=== PATIENT | female | born 1940 | race Caucasian/White ===

== ENCOUNTER → 2017-02-10 | Outpatient (REF) | payer MEDICARE, BC ==
[2017-02-10 18:10] LABS: TOTAL PROTEIN 6.4 GM/DL (6.4-8.2)
[2017-02-14 12:39] LABS: ALBUMIN % 62.5 % (55.8-66.1); GAMMA GLOBULIN % 11.4 % (11.1-18.8)
== END ==
LOC: M LAB REF 17:32
PROVIDERS: ATTEND Internal Medicine
DX: D64.9 Anemia, unspecified (principal); N18.3 Chronic kidney disease, stage 3 (moderate)

== ENCOUNTER → 2018-02-08 | Outpatient (CLI) | payer MEDICARE | LOC: M PAIN 14:00 | DX: M79.1 Myalgia (principal); M48.07 Spinal stenosis, lumbosacral region; G89.29 Other chronic pain; E11.9 Type 2 diabetes mellitus without complications; E78.00 Pure hypercholesterolemia, unspecified; I10 Essential (primary) hypertension; Z79.84 Long term (current) use of oral hypoglycemic drugs; Z79.82 Long term (current) use of aspirin; Z79.899 Other long term (current) drug therapy; Z88.2 Allergy status to sulfonamides; Z88.5 Allergy status to narcotic agent; Z88.6 Allergy status to analgesic agent; Z88.8 Allergy status to other drugs, medicaments and biological substances; Z96.643 Presence of artificial hip joint, bilateral | CPT/HCPCS: G0463 ==

== ENCOUNTER → 2018-02-22 | Outpatient (CLI) | payer MEDICARE ==
[~2018-02-22] MED LIST: BUPIVACAINE HCL 0.25% 10 ML VIAL As Ordered; BUPIVACAINE HCL 0.25% 30 ML VIAL As Ordered; TRIAMCINOLONE ACETONIDE SUSP 40 MG/ML VIAL (J3301) As Ordered
== END ==
LOC: M PAIN 08:45
DX: G89.29 Other chronic pain (principal); M79.1 Myalgia; E11.9 Type 2 diabetes mellitus without complications; E78.00 Pure hypercholesterolemia, unspecified; I10 Essential (primary) hypertension; Z96.643 Presence of artificial hip joint, bilateral; Z79.84 Long term (current) use of oral hypoglycemic drugs; Z79.82 Long term (current) use of aspirin; Z79.899 Other long term (current) drug therapy; Z88.2 Allergy status to sulfonamides; Z88.6 Allergy status to analgesic agent; Z88.8 Allergy status to other drugs, medicaments and biological substances
CPT/HCPCS: J3301

== ENCOUNTER → 2018-03-12 | Outpatient (CLI) | payer MEDICARE | LOC: M PAIN 09:45 | DX: M47.817 Spondylosis without myelopathy or radiculopathy, lumbosacral region (principal); E11.9 Type 2 diabetes mellitus without complications; I10 Essential (primary) hypertension; E78.00 Pure hypercholesterolemia, unspecified; Z79.82 Long term (current) use of aspirin; Z79.84 Long term (current) use of oral hypoglycemic drugs; Z79.899 Other long term (current) drug therapy; Z88.8 Allergy status to other drugs, medicaments and biological substances; Z90.710 Acquired absence of both cervix and uterus; Z96.643 Presence of artificial hip joint, bilateral | CPT/HCPCS: G0463 ==

== ENCOUNTER → 2018-04-10 | Outpatient (CLI) | payer MEDICARE ==
[~2018-04-10] MED LIST changes: -BUPIVACAINE HCL 0.25% 10 ML VIAL As Ordered; +ISOVUE-M 300 61% 15ML VIAL (Q9967) As Ordered; +LIDOCAINE 1% SDV INJ 30 ML VIAL As Ordered; +diazePAM 5 MG TAB As Ordered; +diphenhydrAMINE INJ 50MG/ML VIAL (J1200) As Ordered; +oxyCODONE 5MG TAB As Ordered
== END ==
LOC: M PAIN 10:45
DX: G89.29 Other chronic pain (principal); M46.1 Sacroiliitis, not elsewhere classified; M54.5 Low back pain; E11.9 Type 2 diabetes mellitus without complications; E78.00 Pure hypercholesterolemia, unspecified; I10 Essential (primary) hypertension; Z79.84 Long term (current) use of oral hypoglycemic drugs; Z79.82 Long term (current) use of aspirin; Z79.899 Other long term (current) drug therapy; Z88.2 Allergy status to sulfonamides; Z88.8 Allergy status to other drugs, medicaments and biological substances; Z96.643 Presence of artificial hip joint, bilateral; Z90.710 Acquired absence of both cervix and uterus; Z86.69 Personal history of other diseases of the nervous system and sense organs
CPT/HCPCS: J3301

== ENCOUNTER → 2018-04-26 | Outpatient (CLI) | payer MEDICARE | LOC: M PAIN 09:45 | DX: M46.1 Sacroiliitis, not elsewhere classified (principal); M79.1 Myalgia; M48.07 Spinal stenosis, lumbosacral region; E11.9 Type 2 diabetes mellitus without complications; E78.00 Pure hypercholesterolemia, unspecified; I10 Essential (primary) hypertension; H26.9 Unspecified cataract; Z96.643 Presence of artificial hip joint, bilateral; Z88.2 Allergy status to sulfonamides; Z88.6 Allergy status to analgesic agent; Z88.8 Allergy status to other drugs, medicaments and biological substances; Z79.84 Long term (current) use of oral hypoglycemic drugs; Z79.82 Long term (current) use of aspirin; Z79.899 Other long term (current) drug therapy | CPT/HCPCS: G0463 ==

== ENCOUNTER → 2018-06-26 | Outpatient (CLI) | payer MEDICARE | LOC: M PAIN 14:15 | DX: M46.1 Sacroiliitis, not elsewhere classified (principal); M48.07 Spinal stenosis, lumbosacral region; M79.18 Myalgia, other site; E11.9 Type 2 diabetes mellitus without complications; E78.00 Pure hypercholesterolemia, unspecified; I10 Essential (primary) hypertension; Z79.84 Long term (current) use of oral hypoglycemic drugs; Z79.82 Long term (current) use of aspirin; Z79.899 Other long term (current) drug therapy; Z88.2 Allergy status to sulfonamides; Z88.5 Allergy status to narcotic agent; Z88.6 Allergy status to analgesic agent; Z88.8 Allergy status to other drugs, medicaments and biological substances; Z96.643 Presence of artificial hip joint, bilateral; Z96.641 Presence of right artificial hip joint; Z96.642 Presence of left artificial hip joint | CPT/HCPCS: G0463 ==

== ENCOUNTER 2019-04-24 10:50 | Emergency (ER) | payer MEDICARE ==
[~2019-04-24] VITALS: Ht 162.6 cm; Wt 63.6 kg
[2019-04-24] MEDS ORDERED: SYNT75TA (11:19)
[2019-04-24] MEDS ORDERED: TOPR25TA (11:19)
[2019-04-24] MEDS ORDERED: REST0.05 (11:19)
[2019-04-24] MEDS ORDERED: CALC1TAB63 PO (11:19)
[2019-04-24] MEDS ORDERED: MEMA14CA (11:19)
[2019-04-24] MEDS ORDERED: DONE5TAB82 (11:19)
[2019-04-24] MEDS ORDERED: ATOR1TAB21 (11:19)
[2019-04-24] MEDS ORDERED: RAMI1CAP26 (11:19)
[2019-04-24] MEDS ORDERED: CENT1TAB PO (11:19)
[2019-04-24] MEDS ORDERED: ONGL1TAB9 (11:19)
[2019-04-24] MEDS ORDERED: BIOT1CAP2 PO (11:19)
[2019-04-24] MEDS ORDERED: METF500T13 (11:19)
[2019-04-24 11:32] VITALS: BP 201/82
[2019-04-24] MEDS ORDERED: KETOROLAC 30 MG/ML VIAL (J1885) IM ONE (12:30)
[2019-04-24] MEDS ORDERED: diazePAM 5 MG TAB PO ONE (12:45)
[2019-04-24] MEDS ORDERED: TYLE650T35 PO (12:45)
[2019-04-24] MEDS ORDERED: SOMA250T PO (12:45)
[2019-04-24] MEDS ORDERED: ACETAMINOPHEN TAB 650MG DOSE (2X325MG) PO ONE (12:45)
== END 2019-04-24 12:59 | disposition home or self-care (01) ==
LOC: M ED 10:50 → EDBD 10:50 → M ED 12:59
DX: M54.16 Radiculopathy, lumbar region (principal); M19.90 Unspecified osteoarthritis, unspecified site; E11.9 Type 2 diabetes mellitus without complications; I10 Essential (primary) hypertension; Z87.891 Personal history of nicotine dependence; Z79.84 Long term (current) use of oral hypoglycemic drugs; Z79.899 Other long term (current) drug therapy; Z88.6 Allergy status to analgesic agent; Z88.2 Allergy status to sulfonamides

== ENCOUNTER → 2019-05-17 | Outpatient (REF) | payer MEDICARE ==
[~2019-05-17] MED LIST changes: +ATOR1TAB21; +BIOT1CAP2 PO; -BUPIVACAINE HCL 0.25% 30 ML VIAL As Ordered; +CALC1TAB63 PO; +CENT1TAB PO; +DONE5TAB82; -ISOVUE-M 300 61% 15ML VIAL (Q9967) As Ordered; -LIDOCAINE 1% SDV INJ 30 ML VIAL As Ordered; +MEMA14CA; +METF500T13; +ONGL1TAB9; +RAMI1CAP26; +REST0.05; +SOMA250T PO; +SYNT75TA; +TOPR25TA; -TRIAMCINOLONE ACETONIDE SUSP 40 MG/ML VIAL (J3301) As Ordered; +TYLE650T35 PO; -diazePAM 5 MG TAB As Ordered; -diphenhydrAMINE INJ 50MG/ML VIAL (J1200) As Ordered; -oxyCODONE 5MG TAB As Ordered
[2019-05-19 08:27] LABS: LDL DIRECT 34 mg/dL (0-99)
== END ==
LOC: M LAB REF 16:30
PROVIDERS: ATTEND Internal Medicine
DX: E78.5 Hyperlipidemia, unspecified (principal)

== ENCOUNTER → 2021-06-04 | Outpatient (CLI) | payer MEDICARE ==
[~2021-06-04] MED LIST changes: +ACET650T61 PO; -TYLE650T35 PO
== END ==
LOC: M WHC 13:05
PROVIDERS: ATTEND Internal Medicine
DX: Z12.31 Encounter for screening mammogram for malignant neoplasm of breast (principal)

== ENCOUNTER 2022-03-02 16:09 | Inpatient (IN) | payer MEDICARE ==
[~2022-03-02] VITALS: Ht 165.1 cm; Wt 60.1 kg
[~2022-03-02 16:09] MED LIST changes: -ATOR1TAB21; +ATOR1TAB21 PO; -METF500T13; +METF500T13 PO; -RAMI1CAP26; +RAMI1CAP26 PO; -REST0.05; +REST0.05 OU; -SYNT75TA; +SYNT75TA PO; -TOPR25TA; +TOPR25TA PO
[2022-03-02] MEDS ORDERED: BRIM5DRO4 OU (16:25)
[2022-03-02] MEDS ORDERED: MORPHINE 2 MG/ML 1ML VIAL IV ONE ×2 (21:05→22:15)
[2022-03-02] MEDS ORDERED: propofoL 200 MG/20 ML VIAL As Ordered ONE (22:40)
[2022-03-02] MEDS ORDERED: NS 1,000 ML IV SCH (22:40)
[2022-03-02] MEDS ORDERED: propofoL 200 MG/20 ML VIAL IV.PROC PRN (22:40)
[2022-03-02 23:12] LABS: HEMATOCRIT 34.9 % (36.0-47.0); HEMOGLOBIN 11.7 g/dl (12.0-15.5); MEAN CORPUSCULAR HEMOGLOBIN 32.4 pg (27.0-33.0); MEAN CORPUSCULAR HGB CONC 33.5 g/dl (32.0-36.5); MEAN CORPUSCULAR VOLUME 96.7 fl (80.0-96.0); PLATELET COUNT, AUTOMATED 186 10^3/uL (150-450); RED BLOOD COUNT 3.61 10^6/uL (4.00-5.40); WHITE BLOOD COUNT 6.5 10^3/uL (4.0-10.0)
[2022-03-02 23:33] LABS: CALCIUM LEVEL 8.3 MG/DL (8.8-10.2); CREATININE FOR GFR 1.15 MG/DL (0.55-1.30); GLOMERULAR FILTRATION RATE 48.2 (>32); POTASSIUM SERUM 3.7 MEQ/L (3.5-5.1)
[2022-03-03 00:16] LABS: RSV AMPLIFICATION NEGATIVE (NEGATIVE)
[2022-03-03] MEDS ORDERED: MOM 30ML SUSPENSION UDC PO PRN (00:50)
[2022-03-03] MEDS ORDERED: GLUCAGON INJ 1MG VIAL SC PRN (00:50)
[2022-03-03] MEDS ORDERED: GLUCOSE 4GM CHEW TABLET PO PRN (00:50)
[2022-03-03] MEDS ORDERED: MAALOX 30 ML SUSP *UDC PO PRN (00:50)
[2022-03-03] MEDS ORDERED: DEXTROSE 50% 50 ML SYRINGE IV PRN (00:50)
[2022-03-03] MEDS ORDERED: MORPHINE 2 MG/ML 1ML VIAL IV PRN ×2 (00:50)
[2022-03-03 02:09] LABS: INR 0.97; PROTHROMBIN TIME 13.3 SECONDS (12.7-14.5)
[2022-03-03 03:32] VITALS: BP 185/77
[2022-03-03 03:36] VITALS: BP 152/68
[2022-03-03 07:33] LABS: HEMATOCRIT 34.7 % (36.0-47.0); HEMOGLOBIN 11.4 g/dl (12.0-15.5); MEAN CORPUSCULAR HEMOGLOBIN 31.8 pg (27.0-33.0); MEAN CORPUSCULAR HGB CONC 32.9 g/dl (32.0-36.5); MEAN CORPUSCULAR VOLUME 96.7 fl (80.0-96.0); PLATELET COUNT, AUTOMATED 166 10^3/uL (150-450); RED BLOOD COUNT 3.59 10^6/uL (4.00-5.40)
[2022-03-03 07:53] LABS: CALCIUM LEVEL 8.5 MG/DL (8.8-10.2); CREATININE FOR GFR 0.98 MG/DL (0.55-1.30); MAGNESIUM LEVEL 1.6 MG/DL (1.8-2.4); POTASSIUM SERUM 3.6 MEQ/L (3.5-5.1)
[2022-03-03] MEDS: INSULIN LISPRO (NovoLOG) PER UNIT SC SCH ×4 (08:16→20:41)
[2022-03-03] MEDS: DOCUSATE SODIUM 100MG CAPSULE PO SCH ×2 (08:17→20:43)
[2022-03-03 12:00] VITALS: BP 115/55
[2022-03-03] MEDS ORDERED: MEMA28CA12 PO (12:17)
[2022-03-03] MEDS ORDERED: ASPI-161 PO (12:17)
[2022-03-03] MEDS ORDERED: CYAN100050 PO (12:17)
[2022-03-03] MEDS ORDERED: HOME MED LIST COMPLETE! XX SCH (12:20)
[2022-03-03] MEDS: HEPARIN SOD (PORCINE) 5000UNITS/ML 1ML VIAL/SYRINGE SC SCH ×2 (13:12→20:43)
[2022-03-03] MEDS ORDERED: AMLO2.5T3 PO (15:07)
[2022-03-03] MEDS: ramipriL 5 MG CAP PO SCH (16:27)
[2022-03-03] MEDS: MULTIVITAMINS/MINERALS THERAP 1 TAB PO SCH (18:12)
[2022-03-03] MEDS: MEMANTINE 5MG TABLET (NAMENDA) PO SCH (18:13)
[2022-03-03] MEDS: ASPIRIN 81MG ENTERIC TABLET PO SCH (18:13)
[2022-03-03] MEDS: METOPROLOL SUCC *XL* 25MG TAB (TopROL *XL*) PO SCH (18:13)
[2022-03-03 20:33] VITALS: BP 148/74
[2022-03-03] MEDS: BRIMONIDINE 0.15% OPHTH SOLN 5 ML OU SCH (20:43)
[2022-03-03] MEDS: ACETAMINOPHEN TAB 650MG DOSE (2X325MG) PO PRN (20:43)
[2022-03-03] MEDS: TIMOLOL MALEATE 0.5% OPHTH SOLN 5 ML OU SCH (20:43)
[2022-03-03] MEDS: ATORVASTATIN 20 MG TAB PO SCH (20:43)
[2022-03-03 22:23] LABS: APPEARANCE, URINE CLOUDY (CLEAR); BACTERIA, URINE AUTO 1+ (NEGATIVE); BILIRUBIN, URINE AUTO NEGATIVE (NEGATIVE); BLOOD, URINE BLOOD 2+ (NEGATIVE); COLOR, URINE YELLOW (YELLOW); GLUCOSE, URINE (UA) AUTO NEGATIVE (NEGATIVE); KETONE, URINE AUTO NEGATIVE (NEGATIVE); LEUKOCYTE ESTERASE, URINE AUTO 2+ (NEGATIVE); MUCUS, URINE SMALL (NEGATIVE); NITRITE, URINE AUTO NEGATIVE (NEGATIVE); PROTEIN, URINE AUTO 1+ mg/dL (NEGATIVE); RBC, URINE AUTO 18 /HPF (0-3); SQUAMOUS EPITHELIAL CELL UR AU 0 /HPF (0-6); UROBILINOGEN, URINE AUTO 0.2 mg/dL (0.0-2.0); WBC, URINE AUTO 170 /HPF (0-3)
[2022-03-04 05:59] VITALS: BP 140/68
[2022-03-04] MEDS: HEPARIN SOD (PORCINE) 5000UNITS/ML 1ML VIAL/SYRINGE SC SCH ×3 (06:04→20:17)
[2022-03-04] MEDS: LEVOTHYROXINE 75MCG TABLET (0.075MG) PO SCH (06:04)
[2022-03-04] MEDS ORDERED: cefTRIAXone SOD 1 GM in D5W MINI-BAG PLUS 50 ML IV SCH (09:00)
[2022-03-04] MEDS: ramipriL 5 MG CAP PO SCH (09:00)
[2022-03-04] MEDS: ASPIRIN 81MG ENTERIC TABLET PO SCH (09:06)
[2022-03-04] MEDS: MULTIVITAMINS/MINERALS THERAP 1 TAB PO SCH (09:08)
[2022-03-04] MEDS: MEMANTINE 5MG TABLET (NAMENDA) PO SCH (09:08)
[2022-03-04] MEDS: DOCUSATE SODIUM 100MG CAPSULE PO SCH ×2 (09:08→20:16)
[2022-03-04] MEDS: INSULIN LISPRO (NovoLOG) PER UNIT SC SCH ×4 (09:08→21:00)
[2022-03-04] MEDS: TIMOLOL MALEATE 0.5% OPHTH SOLN 5 ML OU SCH ×2 (09:10→20:17)
[2022-03-04] MEDS: METOPROLOL SUCC *XL* 25MG TAB (TopROL *XL*) PO SCH (09:10)
[2022-03-04] MEDS: BRIMONIDINE 0.15% OPHTH SOLN 5 ML OU SCH ×2 (09:10→20:17)
[2022-03-04] MEDS: ACETAMINOPHEN TAB 650MG DOSE (2X325MG) PO PRN ×2 (10:23→17:50)
[2022-03-04 12:00] VITALS: BP 108/53
[2022-03-04 19:50] VITALS: BP 148/65
[2022-03-04] MEDS: QUEtiapine FUMARATE 25 MG TAB PO SCH (20:16)
[2022-03-04] MEDS: ATORVASTATIN 20 MG TAB PO SCH (20:16)
[2022-03-05 03:49] VITALS: BP 128/86
[2022-03-05] MEDS: LEVOTHYROXINE 75MCG TABLET (0.075MG) PO SCH (05:45)
[2022-03-05] MEDS: CEPHALEXIN 250MG CAPSULE PO SCH ×3 (05:45→17:25)
[2022-03-05] MEDS: HEPARIN SOD (PORCINE) 5000UNITS/ML 1ML VIAL/SYRINGE SC SCH ×3 (05:45→21:27)
[2022-03-05] MEDS: INSULIN LISPRO (NovoLOG) PER UNIT SC SCH ×4 (08:47→20:21)
[2022-03-05] MEDS: MEMANTINE 5MG TABLET (NAMENDA) PO SCH (08:47)
[2022-03-05] MEDS: MULTIVITAMINS/MINERALS THERAP 1 TAB PO SCH (08:47)
[2022-03-05] MEDS: BRIMONIDINE 0.15% OPHTH SOLN 5 ML OU SCH ×2 (08:47→21:26)
[2022-03-05] MEDS: ASPIRIN 81MG ENTERIC TABLET PO SCH (08:47)
[2022-03-05] MEDS: DOCUSATE SODIUM 100MG CAPSULE PO SCH ×2 (08:47→21:26)
[2022-03-05] MEDS: TIMOLOL MALEATE 0.5% OPHTH SOLN 5 ML OU SCH ×2 (08:49→21:26)
[2022-03-05] MEDS: METOPROLOL SUCC *XL* 25MG TAB (TopROL *XL*) PO SCH (08:50)
[2022-03-05] MEDS: ramipriL 5 MG CAP PO SCH (08:50)
[2022-03-05 19:32] VITALS: BP 134/63
[2022-03-05] MEDS: ATORVASTATIN 20 MG TAB PO SCH (21:26)
[2022-03-05] MEDS: QUEtiapine FUMARATE 25 MG TAB PO SCH (21:27)
[2022-03-06] MEDS: CEPHALEXIN 250MG CAPSULE PO SCH ×2 (00:31→06:04)
[2022-03-06 03:39] VITALS: BP 157/72
[2022-03-06] MEDS: LEVOTHYROXINE 75MCG TABLET (0.075MG) PO SCH (06:04)
[2022-03-06] MEDS: HEPARIN SOD (PORCINE) 5000UNITS/ML 1ML VIAL/SYRINGE SC SCH ×3 (06:04→20:29)
[2022-03-06] MEDS: MEMANTINE 5MG TABLET (NAMENDA) PO SCH (08:51)
[2022-03-06] MEDS: INSULIN LISPRO (NovoLOG) PER UNIT SC SCH ×4 (08:55→19:57)
[2022-03-06] MEDS: ASPIRIN 81MG ENTERIC TABLET PO SCH (08:56)
[2022-03-06] MEDS: MULTIVITAMINS/MINERALS THERAP 1 TAB PO SCH (08:56)
[2022-03-06] MEDS: AUGMENTIN 875 MG TAB PO SCH ×2 (08:56→20:28)
[2022-03-06] MEDS: DOCUSATE SODIUM 100MG CAPSULE PO SCH ×2 (08:56→20:28)
[2022-03-06] MEDS: ramipriL 5 MG CAP PO SCH (08:57)
[2022-03-06] MEDS: BRIMONIDINE 0.15% OPHTH SOLN 5 ML OU SCH ×2 (08:57→20:28)
[2022-03-06] MEDS: METOPROLOL SUCC *XL* 25MG TAB (TopROL *XL*) PO SCH (08:57)
[2022-03-06] MEDS: TIMOLOL MALEATE 0.5% OPHTH SOLN 5 ML OU SCH ×2 (08:58→20:28)
[2022-03-06 12:00] VITALS: BP 116/58
[2022-03-06] MEDS: ACETAMINOPHEN TAB 650MG DOSE (2X325MG) PO PRN (18:02)
[2022-03-06] MEDS: QUEtiapine FUMARATE 25 MG TAB PO SCH (20:28)
[2022-03-06] MEDS: ATORVASTATIN 20 MG TAB PO SCH (20:28)
[2022-03-07 05:45] VITALS: BP 108/63
[2022-03-07] MEDS: LEVOTHYROXINE 75MCG TABLET (0.075MG) PO SCH (06:11)
[2022-03-07] MEDS: HEPARIN SOD (PORCINE) 5000UNITS/ML 1ML VIAL/SYRINGE SC SCH ×3 (06:11→21:04)
[2022-03-07] MEDS: INSULIN LISPRO (NovoLOG) PER UNIT SC SCH ×4 (08:39→21:00)
[2022-03-07] MEDS: AUGMENTIN 875 MG TAB PO SCH ×2 (08:39→21:04)
[2022-03-07] MEDS: ramipriL 5 MG CAP PO SCH (08:41)
[2022-03-07] MEDS: MEMANTINE 5MG TABLET (NAMENDA) PO SCH (08:41)
[2022-03-07] MEDS: DOCUSATE SODIUM 100MG CAPSULE PO SCH ×2 (08:42→21:04)
[2022-03-07] MEDS: MULTIVITAMINS/MINERALS THERAP 1 TAB PO SCH (08:42)
[2022-03-07] MEDS: ASPIRIN 81MG ENTERIC TABLET PO SCH (08:43)
[2022-03-07] MEDS: BRIMONIDINE 0.15% OPHTH SOLN 5 ML OU SCH ×2 (08:43→21:05)
[2022-03-07] MEDS: METOPROLOL SUCC *XL* 25MG TAB (TopROL *XL*) PO SCH (08:43)
[2022-03-07] MEDS: TIMOLOL MALEATE 0.5% OPHTH SOLN 5 ML OU SCH ×2 (08:43→21:05)
[2022-03-07] MEDS: ACETAMINOPHEN TAB 650MG DOSE (2X325MG) PO PRN ×2 (10:35→17:06)
[2022-03-07] MEDS: QUEtiapine FUMARATE 25 MG TAB PO SCH (21:04)
[2022-03-07] MEDS: ATORVASTATIN 20 MG TAB PO SCH (21:05)
[2022-03-08 06:21] VITALS: BP 143/65
[2022-03-08] MEDS: HEPARIN SOD (PORCINE) 5000UNITS/ML 1ML VIAL/SYRINGE SC SCH ×3 (06:35→21:55)
[2022-03-08] MEDS: LEVOTHYROXINE 75MCG TABLET (0.075MG) PO SCH (06:35)
[2022-03-08] MEDS: AUGMENTIN 875 MG TAB PO SCH ×2 (08:24→21:54)
[2022-03-08] MEDS: MULTIVITAMINS/MINERALS THERAP 1 TAB PO SCH (08:24)
[2022-03-08] MEDS: MEMANTINE 5MG TABLET (NAMENDA) PO SCH (08:25)
[2022-03-08] MEDS: ramipriL 5 MG CAP PO SCH (08:25)
[2022-03-08] MEDS: DOCUSATE SODIUM 100MG CAPSULE PO SCH ×2 (08:25→21:54)
[2022-03-08] MEDS: METOPROLOL SUCC *XL* 25MG TAB (TopROL *XL*) PO SCH (08:25)
[2022-03-08] MEDS: ASPIRIN 81MG ENTERIC TABLET PO SCH (08:25)
[2022-03-08] MEDS: INSULIN LISPRO (NovoLOG) PER UNIT SC SCH ×4 (08:26→21:00)
[2022-03-08] MEDS: TIMOLOL MALEATE 0.5% OPHTH SOLN 5 ML OU SCH ×2 (08:27→21:56)
[2022-03-08] MEDS: BRIMONIDINE 0.15% OPHTH SOLN 5 ML OU SCH ×2 (08:27→21:55)
[2022-03-08 15:26] LABS: HEMATOCRIT 33.5 % (36.0-47.0); HEMOGLOBIN 11.2 g/dl (12.0-15.5); MEAN CORPUSCULAR HEMOGLOBIN 32.8 pg (27.0-33.0); MEAN CORPUSCULAR HGB CONC 33.4 g/dl (32.0-36.5); MEAN CORPUSCULAR VOLUME 98.2 fl (80.0-96.0); PLATELET COUNT, AUTOMATED 196 10^3/uL (150-450); RED BLOOD COUNT 3.41 10^6/uL (4.00-5.40); WHITE BLOOD COUNT 5.5 10^3/uL (4.0-10.0)
[2022-03-08 15:49] LABS: CREATININE FOR GFR 1.31 MG/DL (0.55-1.30); GLOMERULAR FILTRATION RATE 41.5 (>32); POTASSIUM SERUM 4.3 MEQ/L (3.5-5.1)
[2022-03-08 19:37] VITALS: BP_SYST 168; BP_SYST 174; BP_DIAS 71; BP_DIAS 72
[2022-03-08] MEDS: ATORVASTATIN 20 MG TAB PO SCH (21:54)
[2022-03-08] MEDS: QUEtiapine FUMARATE 25 MG TAB PO SCH (21:54)
[2022-03-08 22:02] VITALS: BP 154/62
[2022-03-09 04:00] VITALS: BP 126/58
[2022-03-09] MEDS: HEPARIN SOD (PORCINE) 5000UNITS/ML 1ML VIAL/SYRINGE SC SCH ×2 (05:50→14:23)
[2022-03-09] MEDS: LEVOTHYROXINE 75MCG TABLET (0.075MG) PO SCH (05:50)
[2022-03-09] MEDS: ramipriL 5 MG CAP PO SCH (08:16)
[2022-03-09] MEDS: INSULIN LISPRO (NovoLOG) PER UNIT SC SCH ×2 (08:35→12:15)
[2022-03-09 08:37] VITALS: BP 126/58
[2022-03-09] MEDS: ASPIRIN 81MG ENTERIC TABLET PO SCH (08:37)
[2022-03-09] MEDS: AUGMENTIN 875 MG TAB PO SCH (08:37)
[2022-03-09] MEDS: MULTIVITAMINS/MINERALS THERAP 1 TAB PO SCH (08:37)
[2022-03-09] MEDS: METOPROLOL SUCC *XL* 25MG TAB (TopROL *XL*) PO SCH (08:37)
[2022-03-09] MEDS: DOCUSATE SODIUM 100MG CAPSULE PO SCH (08:37)
[2022-03-09] MEDS: MEMANTINE 5MG TABLET (NAMENDA) PO SCH (08:38)
[2022-03-09] MEDS: TIMOLOL MALEATE 0.5% OPHTH SOLN 5 ML OU SCH (08:39)
[2022-03-09] MEDS: BRIMONIDINE 0.15% OPHTH SOLN 5 ML OU SCH (08:39)
[2022-03-09] MEDS ORDERED: AMOX875T2 PO (13:03)
== END 2022-03-09 15:49 | DRG 559 ==
LOC: M ED 16:09 → EEVIPCON 03-03 00:48 → M ED INP 03-03 00:48 → ENRESERV 03-03 02:15 → M 4MAIN 03-03 03:35
PROVIDERS: ADMIT Internal Medicine; ATTEND Internal Medicine
PROC: 0QS7XZZ Reposition Left Upper Femur, External Approach (ICD-10-PCS; principal; 2022-03-03)
DX: T84.021A Dislocation of internal left hip prosthesis, initial encounter (principal); U07.1 COVID-19; N39.0 Urinary tract infection, site not specified; F02.80 Dementia in other diseases classified elsewhere, unspecified severity, without behavioral disturbance, psychotic disturbance, mood disturbance, and anxiety; E78.5 Hyperlipidemia, unspecified; I10 Essential (primary) hypertension; E11.9 Type 2 diabetes mellitus without complications; Z96.643 Presence of artificial hip joint, bilateral; G30.9 Alzheimer's disease, unspecified; B96.20 Unspecified Escherichia coli [E. coli] as the cause of diseases classified elsewhere; Z66 Do not resuscitate; Z79.82 Long term (current) use of aspirin; Z79.899 Other long term (current) drug therapy; Z79.84 Long term (current) use of oral hypoglycemic drugs; Z88.2 Allergy status to sulfonamides; Z88.6 Allergy status to analgesic agent; Y83.1 Surgical operation with implant of artificial internal device as the cause of abnormal reaction of the patient, or of later complication, without mention of misadventure at the time of the procedure

== ENCOUNTER → 2022-04-08 | Outpatient (CLI) | payer MEDICARE ==
[~2022-04-08] MED LIST changes: +AMLO2.5T3 PO; +AMOX875T2 PO; +ASPI-161 PO; +BRIM5DRO4 OU; +CYAN100050 PO; +LIDOCAINE 1% MDV 20ML VIAL As Ordered ONE; +MEMA28CA12 PO
[2022-04-08 13:38] VITALS: BP 167/72
== END ==
LOC: M IRPRO 13:29
PROVIDERS: ATTEND Internal Medicine
DX: E86.0 Dehydration (principal); R11.2 Nausea with vomiting, unspecified
CPT/HCPCS: 36571; 76937; C1751; J1642; J1644

== ENCOUNTER → 2022-04-11 | Outpatient (REF) ==
[~2022-04-11] MED LIST changes: -LIDOCAINE 1% MDV 20ML VIAL As Ordered ONE
[2022-04-11 15:20] LABS: BASO % 0.7 % (0.0-1.0); EOS # 0.2 10^3/uL (0.0-0.5); EOS % 4.3 % (0.0-3.0); HEMATOCRIT 28.8 % (36.0-47.0); LYMPH # 0.7 10^3/uL (1.5-5.0); LYMPH % 16.3 % (24.0-44.0); MEAN CORPUSCULAR HEMOGLOBIN 32.3 pg (27.0-33.0); MEAN CORPUSCULAR HGB CONC 31.3 g/dl (32.0-36.5); MEAN CORPUSCULAR VOLUME 103.2 fl (80.0-96.0); MONO # 0.5 10^3/uL (0.0-0.8); MONO % 10.9 % (2.0-8.0); NEUTROPHILS % 67.3 % (36.0-66.0); PLATELET COUNT, AUTOMATED 162 10^3/uL (150-450); RED BLOOD COUNT 2.79 10^6/uL (4.00-5.40); WHITE BLOOD COUNT 4.4 10^3/uL (4.0-10.0)
[2022-04-11 15:50] LABS: ALBUMIN 2.5 GM/DL (3.2-5.2); ALT/SGPT < 6 U/L (12-78); BILIRUBIN,TOTAL 0.3 MG/DL (0.2-1.0); BLOOD UREA NITROGEN 11 MG/DL (7-18); C REACTIVE PROTEIN QUANTITATIV 0.51 MG/DL (0.00-0.30); CALCIUM LEVEL 8.2 MG/DL (8.8-10.2); CARBON DIOXIDE LEVEL 26 MEQ/L (21-32); CHLORIDE LEVEL 110 MEQ/L (98-107); CREATININE FOR GFR 1.22 MG/DL (0.55-1.30); GLUCOSE, FASTING 261 MG/DL (70-100); POTASSIUM SERUM 3.9 MEQ/L (3.5-5.1); SODIUM LEVEL 143 MEQ/L (136-145); TOTAL PROTEIN 5.6 GM/DL (6.4-8.2)
[2022-04-11 16:49] LABS: ERYTHROCYTE SEDIMENTATION RATE 36 mm/hr (0-30)
== END ==
PROVIDERS: ATTEND Physician Assistant
DX: A41.9 Sepsis, unspecified organism (principal)

== ENCOUNTER → 2022-04-13 | Outpatient (REF) | PROVIDERS: ATTEND Physician Assistant | DX: A41.9 Sepsis, unspecified organism (principal); Z53.9 Procedure and treatment not carried out, unspecified reason ==

== ENCOUNTER → 2022-04-18 | Outpatient (REF) ==
[2022-04-18 11:23] LABS: BASO # 0.1 10^3/uL (0.0-0.2); BASO % 1.2 % (0.0-1.0); EOS # 0.6 10^3/uL (0.0-0.5); EOS % 10.7 % (0.0-3.0); HEMATOCRIT 29.4 % (36.0-47.0); HEMOGLOBIN 9.5 g/dl (12.0-15.5); LYMPH # 1.2 10^3/uL (1.5-5.0); LYMPH % 22.3 % (24.0-44.0); MEAN CORPUSCULAR HEMOGLOBIN 32.4 pg (27.0-33.0); MEAN CORPUSCULAR HGB CONC 32.3 g/dl (32.0-36.5); MEAN CORPUSCULAR VOLUME 100.3 fl (80.0-96.0); MONO # 0.5 10^3/uL (0.0-0.8); MONO % 9.3 % (2.0-8.0); NEUTROPHILS # 2.9 10^3/uL (1.5-8.5); NEUTROPHILS % 56.1 % (36.0-66.0); PLATELET COUNT, AUTOMATED 188 10^3/uL (150-450); RED BLOOD COUNT 2.93 10^6/uL (4.00-5.40); WHITE BLOOD COUNT 5.2 10^3/uL (4.0-10.0)
[2022-04-18 12:07] LABS: ERYTHROCYTE SEDIMENTATION RATE 35 mm/hr (0-30)
[2022-04-18 12:50] LABS: ALBUMIN 2.6 GM/DL (3.2-5.2); BILIRUBIN,TOTAL 0.2 MG/DL (0.2-1.0); C REACTIVE PROTEIN QUANTITATIV 0.3 MG/DL (0.00-0.30); CALCIUM LEVEL 8.9 MG/DL (8.8-10.2); CREATININE FOR GFR 1.17 MG/DL (0.55-1.30); GLOMERULAR FILTRATION RATE 47.3 (>32); POTASSIUM SERUM 4.2 MEQ/L (3.5-5.1); TOTAL PROTEIN 5.7 GM/DL (6.4-8.2)
== END ==
PROVIDERS: ATTEND Physician Assistant
DX: A41.9 Sepsis, unspecified organism (principal)

== ENCOUNTER → 2022-04-20 | Outpatient (REF) | PROVIDERS: ATTEND Physician Assistant | DX: A41.9 Sepsis, unspecified organism (principal); Z53.9 Procedure and treatment not carried out, unspecified reason ==

== ENCOUNTER → 2022-04-25 | Outpatient (REF) ==
[2022-04-25 14:21] LABS: BASO # 0.1 10^3/uL (0.0-0.2); BASO % 0.8 % (0.0-1.0); EOS # 0.5 10^3/uL (0.0-0.5); EOS % 7.4 % (0.0-3.0); HEMATOCRIT 29.4 % (36.0-47.0); HEMOGLOBIN 9.3 g/dl (12.0-15.5); LYMPH # 1.1 10^3/uL (1.5-5.0); LYMPH % 17.8 % (24.0-44.0); MEAN CORPUSCULAR HEMOGLOBIN 32.9 pg (27.0-33.0); MEAN CORPUSCULAR HGB CONC 31.6 g/dl (32.0-36.5); MEAN CORPUSCULAR VOLUME 103.9 fl (80.0-96.0); MONO # 0.5 10^3/uL (0.0-0.8); MONO % 8.2 % (2.0-8.0); NEUTROPHILS # 4.1 10^3/uL (1.5-8.5); NEUTROPHILS % 65.5 % (36.0-66.0); PLATELET COUNT, AUTOMATED 208 10^3/uL (150-450); RED BLOOD COUNT 2.83 10^6/uL (4.00-5.40); WHITE BLOOD COUNT 6.2 10^3/uL (4.0-10.0)
[2022-04-25 14:35] LABS: ALBUMIN 2.6 GM/DL (3.2-5.2); BILIRUBIN,TOTAL 0.2 MG/DL (0.2-1.0); C REACTIVE PROTEIN QUANTITATIV 0.3 MG/DL (0.00-0.30); CALCIUM LEVEL 7.8 MG/DL (8.8-10.2); CREATININE FOR GFR 0.99 MG/DL (0.55-1.30); GLOMERULAR FILTRATION RATE 57.3 (>32); POTASSIUM SERUM 3.9 MEQ/L (3.5-5.1); TOTAL PROTEIN 5.7 GM/DL (6.4-8.2)
[2022-04-25 14:55] LABS: ERYTHROCYTE SEDIMENTATION RATE 37 mm/hr (0-30)
== END ==
PROVIDERS: ATTEND Physician Assistant
DX: A41.9 Sepsis, unspecified organism (principal)

== ENCOUNTER → 2022-05-02 | Outpatient (REF) | PROVIDERS: ATTEND Physician Assistant | DX: A41.9 Sepsis, unspecified organism (principal); Z53.9 Procedure and treatment not carried out, unspecified reason ==

== ENCOUNTER → 2022-05-09 | Outpatient (REF) | PROVIDERS: ATTEND Physician Assistant | DX: A41.9 Sepsis, unspecified organism (principal); Z53.9 Procedure and treatment not carried out, unspecified reason ==

== ENCOUNTER 2022-05-11 13:47 | Emergency (ER) | payer MEDICARE ==
[~2022-05-11] VITALS: Ht 162.6 cm; Wt 53.5 kg
[2022-05-11 16:32] VITALS: BP 167/72
== END 2022-05-11 16:30 | disposition home or self-care (01) ==
LOC: M ED 13:47
DX: S09.90XA Unspecified injury of head, initial encounter (principal); S50.11XA Contusion of right forearm, initial encounter; S40.021A Contusion of right upper arm, initial encounter; S50.311A Abrasion of right elbow, initial encounter; W19.XXXA Unspecified fall, initial encounter; Y92.018 Other place in single-family (private) house as the place of occurrence of the external cause; E11.9 Type 2 diabetes mellitus without complications; I10 Essential (primary) hypertension; E78.9 Disorder of lipoprotein metabolism, unspecified; F03.90 Unspecified dementia, unspecified severity, without behavioral disturbance, psychotic disturbance, mood disturbance, and anxiety; Z88.1 Allergy status to other antibiotic agents; Z88.2 Allergy status to sulfonamides; Z88.8 Allergy status to other drugs, medicaments and biological substances; Z79.899 Other long term (current) drug therapy; Z79.82 Long term (current) use of aspirin; Z79.890 Hormone replacement therapy; Z79.84 Long term (current) use of oral hypoglycemic drugs

== ENCOUNTER → 2022-05-16 | Outpatient (REF) | PROVIDERS: ATTEND Physician Assistant | DX: A41.9 Sepsis, unspecified organism (principal); Z53.9 Procedure and treatment not carried out, unspecified reason ==

== ENCOUNTER → 2022-05-23 | Outpatient (REF) | PROVIDERS: ATTEND Physician Assistant | DX: A41.9 Sepsis, unspecified organism (principal); Z53.8 Procedure and treatment not carried out for other reasons ==

== ENCOUNTER → 2022-07-05 | Outpatient (REF) | payer MEDICARE | LOC: M LAB REF 16:23 | PROVIDERS: ATTEND Internal Medicine | DX: Z79.899 Other long term (current) drug therapy (principal); B95.8 Unspecified staphylococcus as the cause of diseases classified elsewhere ==

== ENCOUNTER → 2022-08-05 | Outpatient (REF) | payer MEDICARE | LOC: M LAB REF 13:11 | PROVIDERS: ATTEND Internal Medicine | DX: Z79.899 Other long term (current) drug therapy (principal); B95.8 Unspecified staphylococcus as the cause of diseases classified elsewhere ==

== ENCOUNTER → 2022-09-01 | Outpatient (REF) | payer MEDICARE | LOC: M LAB REF 12:37 | PROVIDERS: ATTEND Physician Assistant Medical | DX: B95.8 Unspecified staphylococcus as the cause of diseases classified elsewhere (principal); Z79.2 Long term (current) use of antibiotics ==

== ENCOUNTER 2022-12-14 22:04 | Observation (INO) | payer MEDICARE ==
[2022-12-15] MEDS ORDERED: hydrALAZINE 20MG/ML 1ML VIAL IV STA (00:43)
[2022-12-15 00:49] LABS: BASO % 0.5 % (0.0-1.0); EOS # 0.2 10^3/uL (0.0-0.5); EOS % 2.6 % (0.0-3.0); HEMATOCRIT 34.1 % (36.0-47.0); HEMOGLOBIN 10.8 g/dl (12.0-15.5); LYMPH # 1.1 10^3/uL (1.5-5.0); LYMPH % 14.6 % (24.0-44.0); MEAN CORPUSCULAR HEMOGLOBIN 31.7 pg (27.0-33.0); MEAN CORPUSCULAR HGB CONC 31.7 g/dl (32.0-36.5); MONO # 0.6 10^3/uL (0.0-0.8); MONO % 7.5 % (2.0-8.0); NEUTROPHILS # 5.8 10^3/uL (1.5-8.5); NEUTROPHILS % 73.8 % (36.0-66.0); PLATELET COUNT, AUTOMATED 179 10^3/uL (150-450); RED BLOOD COUNT 3.41 10^6/uL (4.00-5.40); WHITE BLOOD COUNT 7.8 10^3/uL (4.0-10.0)
[2022-12-15 00:49] LABS: RSV AMPLIFICATION NEGATIVE (NEGATIVE)
[2022-12-15 01:50] LABS: INR 0.83; PROTHROMBIN TIME 11.6 SECONDS (12.5-14.5)
[2022-12-15 01:51] LABS: PARTIAL THROMBOPLASTIN TIME 26.9 SECONDS (24.8-34.2)
[2022-12-15 02:10] LABS: BLOOD UREA NITROGEN 28 MG/DL (9-23); CALCIUM LEVEL 8.5 MG/DL (8.3-10.6); CARBON DIOXIDE LEVEL 26 MMOL/L (20-31); CHLORIDE LEVEL 105 MMOL/L (98-107); CK-MB VALUE MASS 1.6 NG/ML (<3.6); CPK CREATINE PHOSPHOKINASE 161 U/L (34-145); CREATININE FOR GFR 0.87 MG/DL (0.55-1.30); GLOMERULAR FILTRATION RATE > 60.0 (>32); GLUCOSE, FASTING 191 MG/DL (74-106); MB/CK RELATIVE INDEX 0.99 (< OR =4); POTASSIUM SERUM 4.6 MMOL/L (3.5-5.1); SODIUM LEVEL 140 MMOL/L (136-145)
[2022-12-15] MEDS ORDERED: HOME MED LIST COMPLETE! XX SCH (05:20)
[2022-12-15] MEDS ORDERED: DEXTROSE 50% 50ML SYRINGE IV PRN (06:00)
[2022-12-15] MEDS ORDERED: ACETAMINOPHEN TAB 650MG DOSE (2X325MG) PO PRN (06:00)
[2022-12-15] MEDS: LEVOTHYROXINE 75MCG TABLET (0.075MG) PO SCH (06:00)
[2022-12-15] MEDS ORDERED: GLUCOSE 4GM CHEW TABLET PO PRN (06:00)
[2022-12-15] MEDS ORDERED: GLUCAGON INJ 1MG VIAL SC PRN (06:00)
[2022-12-15 07:06] VITALS: BP 156/77
[2022-12-15] MEDS: INSULIN LISPRO (NovoLOG) PER UNIT SC SCH ×3 (07:18→18:11)
[2022-12-15 08:03] LABS: CK-MB VALUE MASS 1.8 NG/ML (<3.6)
[2022-12-15 08:10] LABS: MB/CK RELATIVE INDEX 1.6 (< OR =4)
[2022-12-15] MEDS: ramipriL 5 MG CAP PO SCH (08:37)
[2022-12-15] MEDS: ASPIRIN 81MG ENTERIC TABLET PO SCH (08:37)
[2022-12-15] MEDS: HEPARIN SOD (PORCINE) 5000UNITS/ML 1ML VIAL/SYRINGE SC SCH ×2 (08:38→20:34)
[2022-12-15] MEDS: METOPROLOL SUCC *XL* 25MG TAB (TopROL *XL*) PO SCH (09:00)
[2022-12-15] MEDS ORDERED: oxyCODONE 5MG TAB PO PRN (09:15)
[2022-12-15] MEDS: ACETAMINOPHEN 500 MG TAB PO SCH ×2 (09:15→20:33)
[2022-12-15 13:00] VITALS: BP 142/53
[2022-12-15 14:00] VITALS: BP 124/47
[2022-12-15] MEDS: NAPROXEN 250 MG TAB PO SCH ×2 (14:03→20:34)
[2022-12-15 20:00] VITALS: BP 137/50
[2022-12-15] MEDS ORDERED: ATORVASTATIN 20 MG TAB PO SCH (21:00)
[2022-12-15] MEDS ORDERED: INSULIN LISPRO (NovoLOG) PER UNIT SC SCH (21:00)
[2022-12-16] MEDS: LEVOTHYROXINE 75MCG TABLET (0.075MG) PO SCH (05:35)
[2022-12-16 06:00] VITALS: BP 135/81
[2022-12-16 06:16] LABS: BASO % 0.6 % (0.0-1.0); EOS # 0.2 10^3/uL (0.0-0.5); EOS % 3.7 % (0.0-3.0); HEMATOCRIT 30.2 % (36.0-47.0); HEMOGLOBIN 9.7 g/dl (12.0-15.5); LYMPH # 1.9 10^3/uL (1.5-5.0); LYMPH % 34.6 % (24.0-44.0); MEAN CORPUSCULAR HEMOGLOBIN 31.6 pg (27.0-33.0); MEAN CORPUSCULAR HGB CONC 32.1 g/dl (32.0-36.5); MEAN CORPUSCULAR VOLUME 98.4 fl (80.0-96.0); MONO # 0.6 10^3/uL (0.0-0.8); NEUTROPHILS # 2.7 10^3/uL (1.5-8.5); NEUTROPHILS % 49.9 % (36.0-66.0); PLATELET COUNT, AUTOMATED 182 10^3/uL (150-450); RED BLOOD COUNT 3.07 10^6/uL (4.00-5.40); WHITE BLOOD COUNT 5.3 10^3/uL (4.0-10.0)
[2022-12-16 06:44] LABS: CALCIUM LEVEL 8.5 MG/DL (8.3-10.6); CREATININE FOR GFR 1.42 MG/DL (0.55-1.30); GLOMERULAR FILTRATION RATE 37.7 (>32); POTASSIUM SERUM 4.1 MMOL/L (3.5-5.1)
[2022-12-16] MEDS: INSULIN LISPRO (NovoLOG) PER UNIT SC SCH (07:30)
[2022-12-16] MEDS: ACETAMINOPHEN 500 MG TAB PO SCH (09:23)
[2022-12-16] MEDS: HEPARIN SOD (PORCINE) 5000UNITS/ML 1ML VIAL/SYRINGE SC SCH (09:24)
[2022-12-16] MEDS: ramipriL 5 MG CAP PO SCH (09:24)
[2022-12-16] MEDS: ASPIRIN 81MG ENTERIC TABLET PO SCH (09:24)
[2022-12-16] MEDS: METOPROLOL SUCC *XL* 25MG TAB (TopROL *XL*) PO SCH (09:24)
[2022-12-16] MEDS: NAPROXEN 250 MG TAB PO SCH (09:24)
[2022-12-16] MEDS ORDERED: ACET-683 PO (09:43)
[2022-12-16] MEDS ORDERED: OXYC-517 PO (09:43)
== END 2022-12-16 11:26 | disposition home health service (06) ==
LOC: M ED 22:04 → EDBD 22:04 → M ED INP 22:05 → ENRESERV 12-15 11:22 → M MSPAV 12-15 13:04
PROVIDERS: ADMIT Internal Medicine; ATTEND Internal Medicine Nephrology
DX: S42.031A Displaced fracture of lateral end of right clavicle, initial encounter for closed fracture (principal); S43.121A Dislocation of right acromioclavicular joint, 100%-200% displacement, initial encounter; M54.2 Cervicalgia; W01.10XA Fall on same level from slipping, tripping and stumbling with subsequent striking against unspecified object, initial encounter; Y92.098 Other place in other non-institutional residence as the place of occurrence of the external cause; N17.9 Acute kidney failure, unspecified; F03.90 Unspecified dementia, unspecified severity, without behavioral disturbance, psychotic disturbance, mood disturbance, and anxiety; I10 Essential (primary) hypertension; E78.5 Hyperlipidemia, unspecified; E11.9 Type 2 diabetes mellitus without complications; E03.9 Hypothyroidism, unspecified; E43 Unspecified severe protein-calorie malnutrition; D64.9 Anemia, unspecified; M46.1 Sacroiliitis, not elsewhere classified; M48.07 Spinal stenosis, lumbosacral region; Z96.652 Presence of left artificial knee joint; Z96.643 Presence of artificial hip joint, bilateral; Z79.899 Other long term (current) drug therapy; Z79.82 Long term (current) use of aspirin; Z79.890 Hormone replacement therapy; Z79.84 Long term (current) use of oral hypoglycemic drugs; Z88.2 Allergy status to sulfonamides; Z88.8 Allergy status to other drugs, medicaments and biological substances
CPT/HCPCS: 36415; 70450; 72125; 73030; 80048; 81001; 82550; 82553; 84145; 84484; 85025; 85610; 85730; 87631; 93005; 93041; 94760; 96372; 97110; 97116; 97161; 97165; 97530; 97535; 99285; G0378; J1815

== ENCOUNTER → 2022-12-26 | Outpatient (REF) | payer MEDICARE ==
[~2022-12-26] MED LIST changes: +ACET-683 PO; +OXYC-517 PO
[2022-12-26 20:07] LABS: PERCENT SATURATION 28.3 % (13.2-45.0)
== END ==
LOC: M LAB REF 16:21
PROVIDERS: ATTEND Internal Medicine
DX: D64.9 Anemia, unspecified (principal)

== ENCOUNTER → 2023-01-06 | Outpatient (CLI) | payer MEDICARE | LOC: M SOG 08:01 | PROVIDERS: ATTEND Physician Assistant | DX: S42.001A Fracture of unspecified part of right clavicle, initial encounter for closed fracture (principal); Z53.8 Procedure and treatment not carried out for other reasons ==

== ENCOUNTER 2023-09-13 16:25 | Inpatient (IN) | payer MEDICARE ==
[~2023-09-13] VITALS: Ht 165.1 cm; Wt 49.0 kg
[~2023-09-13 16:25] MED LIST changes: -ASPI-161 PO; +ASPI-615 PO; +CYAN-1 PO; -CYAN100050 PO
[2023-09-13] MEDS: NS 1,000 ML IV SCH (17:11)
[2023-09-13 17:14] LABS: VENOUS BASE EXCESS 3.2 (-2.0-2.0); VENOUS HCO3 28.7 MMOL/L (23.0-27.0); VENOUS O2 SATURATION 88.3 % (60.0-80.0); VENOUS PARTIAL PRESSURE O2 54.7 mmHg (30.0-50.0); VENOUS PH 7.403 UNITS (7.330-7.430); VENOUS STANDARD HCO3 27.1 MMOL/L; VENOUS TOTAL CO2 30.1 MMOL/L (24.0-28.0)
[2023-09-13 17:23] LABS: BASO % 0.9 % (0.0-1.0); EOS # 0.3 10^3/uL (0.0-0.5); EOS % 5.8 % (0.0-3.0); HEMATOCRIT 39.1 % (36.0-47.0); HEMOGLOBIN 12.6 g/dl (12.0-15.5); LYMPH # 1.3 10^3/uL (1.5-5.0); MEAN CORPUSCULAR HGB CONC 32.2 g/dl (32.0-36.5); MEAN CORPUSCULAR VOLUME 99.2 fl (80.0-96.0); MONO # 0.4 10^3/uL (0.0-0.8); MONO % 8.6 % (2.0-8.0); NEUTROPHILS # 2.3 10^3/uL (1.5-8.5); NEUTROPHILS % 53.5 % (36.0-66.0); PLATELET COUNT, AUTOMATED 190 10^3/uL (150-450); RED BLOOD COUNT 3.94 10^6/uL (4.00-5.40); WHITE BLOOD COUNT 4.3 10^3/uL (4.0-10.0)
[2023-09-13] MEDS: LIDOCAINE 2% 5ML JELLY UROJET TOP ONE (17:31)
[2023-09-13 17:53] LABS: C REACTIVE PROTEIN QUANTITATIV < 0.40 MG/DL (<1.0)
[2023-09-13 17:54] LABS: ALBUMIN 3.8 G/DL (3.2-5.2); ALKALINE PHOSPHATASE 153 U/L (46-116); ALT/SGPT 278 U/L (7.0-40); AST/SGOT 237 U/L (<34); BILIRUBIN,DIRECT 0.1 MG/DL (<0.4); BILIRUBIN,TOTAL 0.5 MG/DL (0.3-1.2); BLOOD UREA NITROGEN 24 MG/DL (9-23); CALCIUM LEVEL 9.2 MG/DL (8.3-10.6); CARBON DIOXIDE LEVEL 29 MMOL/L (20-31); CHLORIDE LEVEL 105 MMOL/L (98-107); CK-MB VALUE MASS < 1.0 NG/ML (<3.6); CREATININE FOR GFR 1.07 MG/DL (0.55-1.30); GLOMERULAR FILTRATION RATE 52.1 (>32); GLUCOSE, FASTING 131 MG/DL (74-106); MAGNESIUM LEVEL 2.2 MG/DL (1.8-2.4); POTASSIUM SERUM 4.7 MMOL/L (3.5-5.1); SODIUM LEVEL 141 MMOL/L (136-145); TOTAL PROTEIN 6.9 G/DL (5.7-8.2)
[2023-09-13 17:57] LABS: RSV AMPLIFICATION NEGATIVE (NEGATIVE)
[2023-09-13 17:58] LABS: CPK CREATINE PHOSPHOKINASE 52 U/L (34-145); MB/CK RELATIVE INDEX 1.92 (< OR =4)
[2023-09-13] MEDS: LORazepam 2 MG/ML 1ML VIAL IV STA (18:15)
[2023-09-13] MEDS ORDERED: LORazepam 2 MG/ML 1ML VIAL As Ordered ONE (18:16)
[2023-09-13] MEDS ORDERED: ISOVUE-370 76% 100ML VIAL As Ordered ONE (18:19)
[2023-09-13] MEDS: LABETALOL 100MG/20ML VIAL IV STA (18:48)
[2023-09-13] MEDS: dexAMETHasone 20MG/5ML VIAL IV ONE (18:48)
[2023-09-13] MEDS: levETIRAcetam INJection 1,000 MG in D5W 100 ML IV ONE (18:59)
[2023-09-13] MEDS ORDERED: MED REC IN PROGRESS XX SCH (19:05)
[2023-09-13 19:25] LABS: CORTISOL BASELINE 6.9 UG/DL (4.3-22.4)
[2023-09-13] MEDS ORDERED: HOME MED LIST COMPLETE! XX SCH (19:30)
[2023-09-13] MEDS ORDERED: GLUCOSE 4GM CHEW TABLET PO PRN (20:35)
[2023-09-13] MEDS ORDERED: GLUCAGON INJ 1MG VIAL SC PRN (20:35)
[2023-09-13] MEDS ORDERED: DEXTROSE 50% 50ML SYRINGE IV PRN (20:35)
[2023-09-13] MEDS: ATORVASTATIN 20 MG TAB PO SCH (21:00)
[2023-09-13] MEDS: ACETAMINOPHEN 500 MG TAB PO SCH (21:00)
[2023-09-13 22:25] VITALS: BP 163/77; TEMP 96.9; O2SAT 98
[2023-09-13 23:31] VITALS: BP 106/50; TEMP 96.2; O2SAT 95
[2023-09-14] VITALS: O2SAT 95
[2023-09-14] MEDS: INSULIN LISPRO (NovoLOG) PER UNIT SC SCH
[2023-09-14] MEDS: REMDESIVIR 200 MG in NS 250 ML IV ONE (02:15)
[2023-09-14 05:27] VITALS: BP 154/72; TEMP 97.5; O2SAT 98
[2023-09-14] MEDS ORDERED: LEVOTHYROXINE 50MCG TABLET (0.05MG) PO SCH (06:00)
[2023-09-14 06:03] LABS: ALBUMIN 3.4 G/DL (3.2-5.2); BILIRUBIN,TOTAL 0.4 MG/DL (0.3-1.2); CREATININE FOR GFR 0.97 MG/DL (0.55-1.30); GLOMERULAR FILTRATION RATE 58.4 (>32); PHOSPHORUS LEVEL 4.1 MG/DL (2.4-5.1); TOTAL PROTEIN 6.4 G/DL (5.7-8.2)
[2023-09-14 07:55] VITALS: BP 130/90; TEMP 97.3; O2SAT 98
[2023-09-14 08:54] LABS: CORTISOL AM 7.6 UG/DL (4.3-22.4)
[2023-09-14 08:59] LABS: HEPATITIS B SURFACE ANTIBODY NEGATIVE (POSITIVE)
[2023-09-14 09:32] LABS: HEPATITIS C VIRUS ABY INDEX 0.05 INDEX (<0.8)
[2023-09-14] MEDS: LEVOTHYROXINE 100MCG (0.1MG) 5ML SDV PF (SOLUTION FORM) IV SCH (10:56)
[2023-09-14] MEDS: ramipriL 5 MG CAP PO SCH (11:03)
[2023-09-14] MEDS: levETIRAcetam INJection 250 MG in D5W MINI-BAG PLUS 100 ML IV SCH (11:04)
[2023-09-14] MEDS: METOPROLOL SUCC *XL* 25MG TAB (TopROL *XL*) PO SCH (11:05)
[2023-09-14] MEDS ORDERED: FLEET ENEMA PR PRN (12:15)
[2023-09-14] MEDS: LORazepam 0.5 MG TAB PO PRN (14:21)
[2023-09-14] MEDS: metFORMIN (GLUCOPHAGE) 500MG TAB PO SCH (18:17)
[2023-09-14] MEDS: QUEtiapine FUMARATE 12.5 MG HALF-TAB PO SCH (20:03)
[2023-09-14] MEDS: levETIRAcetam 250MG TABLET (KEPPRA) PO SCH (20:03)
[2023-09-15] MEDS: LEVOTHYROXINE 88MCG TABLET (0.088 MG) PO SCH (05:51)
[2023-09-15] MEDS: LORazepam 1 MG TAB PO PRN (20:13)
[2023-09-16 16:13] VITALS: BP 106/62
[2023-09-19] MEDS: MORPHINE 10MG/0.5ML ORAL CONCENTRATE SOLUTION U/D SL PRN (04:41)
[2023-09-20] MEDS ORDERED: MORP1SOL5 PO (09:43)
[2023-09-20] MEDS ORDERED: QUET1TAB17 PO (09:43)
[2023-09-20] MEDS ORDERED: HYOS125TA PO (09:43)
[2023-09-20] MEDS ORDERED: ATIV1TAB10 PO (09:43)
[2023-09-20] MEDS ORDERED: KEPP250T5 PO (09:43)
[2023-09-20] MEDS ORDERED: SYNT88TA2 PO (09:43)
== END 2023-09-20 15:30 | disposition hospice, home (50) | DRG 100 ==
LOC: M ED 16:25 → EDBD 16:25 → M ED INP 16:26 → M PCU 22:05 → OBSVTOIN 09-14 12:39 → M MS5PR 09-15 18:26
PROVIDERS: ADMIT Internal Medicine; ATTEND Internal Medicine
PROC: XW033E5 Introduction of Remdesivir Anti-infective into Peripheral Vein, Percutaneous Approach, New Technology Group 5 (ICD-10-PCS; principal; 2023-09-14)
DX: R56.9 Unspecified convulsions (principal); U07.1 COVID-19; E43 Unspecified severe protein-calorie malnutrition; R64 Cachexia; Z68.1 Body mass index [BMI] 19.9 or less, adult; E72.20 Disorder of urea cycle metabolism, unspecified; F03.90 Unspecified dementia, unspecified severity, without behavioral disturbance, psychotic disturbance, mood disturbance, and anxiety; E03.9 Hypothyroidism, unspecified; E11.9 Type 2 diabetes mellitus without complications; E78.5 Hyperlipidemia, unspecified; H40.9 Unspecified glaucoma; R41.0 Disorientation, unspecified; Z51.5 Encounter for palliative care; Z66 Do not resuscitate; K59.00 Constipation, unspecified; R74.01 Elevation of levels of liver transaminase levels; I16.0 Hypertensive urgency; I10 Essential (primary) hypertension; Z90.49 Acquired absence of other specified parts of digestive tract; Z79.890 Hormone replacement therapy; Z79.84 Long term (current) use of oral hypoglycemic drugs; Z79.899 Other long term (current) drug therapy; Z88.2 Allergy status to sulfonamides; Z88.6 Allergy status to analgesic agent; Z74.1 Need for assistance with personal care

== ENCOUNTER → 2023-11-17 | Outpatient (REF) | payer MEDICARE ==
[~2023-11-17] MED LIST changes: +ATIV1TAB10 PO; +HYOS125TA PO; +KEPP250T5 PO; +MORP1SOL5 PO; +QUET1TAB17 PO; +SYNT88TA2 PO
[2023-11-17 18:49] LABS: AMORPHOUS SEDIMENT SMALL (NEGATIVE); APPEARANCE, URINE TURBID (CLEAR); BACTERIA, URINE AUTO 2+ (NEGATIVE); BILIRUBIN, URINE AUTO NEGATIVE (NEGATIVE); BLOOD, URINE BLOOD 1+ (NEGATIVE); COLOR, URINE AMBER (YELLOW); GLUCOSE, URINE (UA) AUTO NEGATIVE (NEGATIVE); KETONE, URINE AUTO 1+ mg/dL (NEGATIVE); LEUKOCYTE ESTERASE, URINE AUTO 2+ (NEGATIVE); MUCUS, URINE SMALL (NEGATIVE); NITRITE, URINE AUTO NEGATIVE (NEGATIVE); PROTEIN, URINE AUTO 3+ mg/dL (NEGATIVE); RBC, URINE AUTO 56 /HPF (0-3); SPECIFIC GRAVITY URINE AUTO 1.018 (1.002-1.035); SQUAMOUS EPITHELIAL CELL UR AU 0 /HPF (0-6); TRIPLE PHOSPHATE CRYSTALS SMALL; WBC, URINE AUTO TNTC /HPF (0-3)
== END ==
LOC: M LAB REF 17:17
PROVIDERS: ATTEND Internal Medicine
DX: N39.0 Urinary tract infection, site not specified (principal)